=== PATIENT | male | born 1990 | race Two or more races ===

== ENCOUNTER → 2022-02-28 09:57 | Outpatient (BNVA) | payer OTHER, SELFPAY | PROVIDERS: Visit Provider Physician Assistant | DX: S67.192A Crushing injury of right middle finger, initial encounter (principal); S62.632A Displaced fracture of distal phalanx of right middle finger, initial encounter for closed fracture; S60.131A Contusion of right middle finger with damage to nail, initial encounter; W23.0XXA Caught, crushed, jammed, or pinched between moving objects, initial encounter; Z23 Encounter for immunization | CPT/HCPCS: 29130; 90715; 99204 ==

== ENCOUNTER → 2022-03-05 14:44 | Outpatient (BNVA) | payer OTHER, SELFPAY | PROVIDERS: Visit Provider Physician Assistant | DX: S62.632A Displaced fracture of distal phalanx of right middle finger, initial encounter for closed fracture (principal); S60.131A Contusion of right middle finger with damage to nail, initial encounter; W23.0XXA Caught, crushed, jammed, or pinched between moving objects, initial encounter | CPT/HCPCS: 29130; 99213 ==

== ENCOUNTER → 2022-03-20 09:34 | Outpatient (BNVA) | payer OTHER, SELFPAY | PROVIDERS: Visit Provider Physician Assistant | DX: S67.192D Crushing injury of right middle finger, subsequent encounter (principal); S60.131D Contusion of right middle finger with damage to nail, subsequent encounter; W23.0XXD Caught, crushed, jammed, or pinched between moving objects, subsequent encounter | CPT/HCPCS: 29130; 99213 ==

== ENCOUNTER → 2022-04-09 10:17 | Outpatient (BNVA) | payer OTHER, SELFPAY | PROVIDERS: Visit Provider Physician Assistant | DX: S62.602D Fracture of unspecified phalanx of right middle finger, subsequent encounter for fracture with routine healing (principal); S60.131D Contusion of right middle finger with damage to nail, subsequent encounter; W23.0XXD Caught, crushed, jammed, or pinched between moving objects, subsequent encounter | CPT/HCPCS: 99213 ==